=== PATIENT | male | born 1970 | race Caucasian/White ===

== ENCOUNTER 2020-03-25 14:50 | Emergency (ER) | payer BC ==
[~2020-03-25] VITALS: Ht 180.3 cm; Wt 83.9 kg
[2020-03-25] MEDS ORDERED: ZOFRAN IV STA (15:00)
[2020-03-25] MEDS ORDERED: ZOFRAN ONE (15:00)
[2020-03-25] MEDS ORDERED: NS 1000ML 1,000 ML IV ONE (15:00)
[2020-03-25] MEDS ORDERED: SUBLIMAZE IV STA ×2 (15:00→16:05)
[2020-03-25] MEDS ORDERED: SUBLIMAZE ONE ×2 (15:00→15:19)
--- NOTE | 2020-03-25 15:00 | NUR ---
ARRIVAL PT TO ROOM 8 VIA STTRETCHER PT LEFT LEG DEFORMITY AT ANKLE NO OPEN SKIN OR DISCOLORATION. AT BEDSIDE
[2020-03-25] MEDS ORDERED: VERSED ONE (15:10)
[2020-03-25] MEDS ORDERED: NS 1000ML 1,000 ML ONE (15:20)
[2020-03-25 15:23] LABS: BASOPHIL % 0.2 % (0.0-0.2); EOSINOPHIL % 0.3 % (0.0-5.0); LYMPHOCYTES # 1.52 10^3/uL1 (1.0-4.8); LYMPHOCYTES % 14.5 % (24.0-44.0); MEAN CORP HGB 30.3 pg (26-34); MONOCYTES # 0.6 10^3/uL (0.3-0.8); MONOCYTES % 5.5 % (5.0-12.0); NEUTROPHIL # 8.3 10^3/uL (1.8-7.7); NEUTROPHILS % 79.3 % (41.0-85.0); PLATELET COUNT 258 10^3/uL (150-400)
--- NOTE | 2020-03-25 15:23 | PCM.EKG ---
[facility] Test Date: 2020-03-25 Test Time: 15:18:48 Pat Name: SORAYA DE PAZ Department: Room: Gender: M Technical Support 1 Software Engineer: MARILYN : [id number] Requested By: JAG PUCKETT Order Number: [id number] Reading MD: Measurements Intervals [place] Rate: 79 P: NM: QRS: 10 QRSD: 87 T: 27 QT: 369 QTc: 424 Interpretive Statements Atrial fibrillation No previous ECG available for comparison Please click the below link to view image of tracing.
--- NOTE | 2020-03-25 15:26 | ER.PDOC ---
General Chief Complaint: Requesting Medical Care Stated Complaint: POSS BROKEN LEG Time seen by MD: 15:22 Source: patient Exam Limitations: no limitations History of Present Illness Initial Comments kicked by a cow Onset: just prior to arrival Where: work Severity: severe Context: wearing shoes, other Associated Symptoms: popping sensation Modifying Factors: pain on movement Reviewed Nursing Reviewed: Vital Signs, Abn. Noted Review of Systems All Other Systems: Reviewed and Negative Physical Exam Foot: nml inspection, non-tender Ankle: tenderness, swelling, ecchymosis, erythema, limited ROM by pain Gait: unable to bear weight Neuro: sensation nml, motor nml Vascular: no vascular compromise Tendons: tendon function nml Leg/Knee/Thigh: uninjured above ankle Skin: warm/dry Head/ENT: nml inspection, pharynx nml Neck/Back: nml inspection, non-tender Resp/CVS: no resp distress Abdomen: non-tender, no organomegaly Results/Orders Results/Orders Orders - JAG PUCKETT MD Fentanyl Citrate/Pf (Sublimaze) (03/25/20 15:00) Ondansetron Hcl/Pf (Zofran) (03/25/20 15:00) 0.9 % Sodium Chloride (Ns 1000ml) (03/25/20 15:00) Cbc With Auto Diff (03/25/20 15:02) Comprehensive Metabolic Panel (03/25/20 15:02) PT (03/25/20 15:02) Partial Thromboplastin Time. (03/25/20 15:02) Xr Chest 1v (03/25/20 15:02) Ekg-Routine (03/25/20 15:02) Midazolam Hcl/Pf (Versed) (03/25/20 15:10) Fentanyl Citrate/Pf (Sublimaze) (03/25/20 15:19) 0.9 % Sodium Chloride (Ns 1000ml) (03/25/20 15:20) Xr Ankle 3v Rt (03/25/20 15:02) Morphine Sulfate (Morphine Sulfate) (03/25/20 15:31) Midazolam Hcl (Versed) (03/25/20 15:38) Midazolam Hcl (Versed) (03/25/20 15:38) Xr Ankle 3v Lt (03/25/20 15:50) Fentanyl Citrate/Pf (Sublimaze) (03/25/20 16:05) Administered Medications Medications (Trade) Dose Ordered Sig/Marcio Route PRN Reason Start Time Stop Time Status Last Admin Dose Admin Fentanyl Citrate (Sublimaze) 100 mcg STAT STAT IV 03/25/20 15:00 03/25/20 15:03 DC 03/25/20 15:00 100 MCG Midazolam HCl (Versed) 2 mg STAT STAT IV 03/25/20 15:38 03/25/20 15:41 DC 03/25/20 15:13 2 MG Ondansetron HCl (Zofran) 4 mg STAT STAT IV 03/25/20 15:00 03/25/20 15:03 DC 03/25/20 15:00 4 MG Sodium Chloride 1,000 ml @ 0 mls/hr Q0M ONCE IV 03/25/20 15:00 03/25/20 15:03 DC 03/25/20 15:00 15 MLS/HR Laboratory Tests Test 03/25/20 15:10 03/25/20 15:12 Prothrombin Time 10.7 SEC (9.3-11.3) Prothrombin Time INR (Non-Therap) 1.1 Activated Partial Thromboplast Time 22.5 SEC (24.67-30.72) Sodium Level 139 mmol/L (132-145) Potassium Level 3.2 mmol/L (3.6-5.2) L Chloride Level 101.0 mmol/L (96-109) Carbon Dioxide Level 23.8 mmol/L (20.0-32) Anion Gap 17.4 Blood Urea Nitrogen 12 mg/dL (7-18) Creatinine 1.20 mg/dL (0.59-1.40) Estimated GFR () 78.5 (>/=60) Est GFR (CKD-EPI)(Non-Afr Filipino) 64.9 (>/=60) BUN/Creatinine Ratio 10.0 Glucose Level 106 mg/dL (70-110) Calcium Level 9.1 mg/dL (8.4-10.5) Total Bilirubin 0.3 mg/dL (0.2-1.0) Aspartate Amino Transferase (AST) 21 U/L (0-35) Alanine Aminotransferase (ALT) 46 U/L (12-78) Alkaline Phosphatase 66 U/L (50-136) Total Protein 7.7 g/dL (6.4-8.2) Albumin 4.3 g/dL (3.4-5.0) Globulin 3.4 Albumin/Globulin Ratio 1.264 White Blood Count 10.5 10^3/uL (4.5-11.0) Red Blood Count 4.72 10^6/uL (4.50-5.90) Hemoglobin 14.3 g/dL (13.9-16.3) Hematocrit 41.5 % (37.0-53.0) Mean Corpuscular Volume 87.9 fL (78-100) Mean Corpuscular Hemoglobin 30.3 pg (26-34) Mean Corpuscular Hemoglobin Concent 34.5 g/dL (33-36.5) Red Cell Distribution Width 12.0 % (11.5-14.5) Platelet Count 258 10^3/uL (150-400) Mean Platelet Volume 11.0 fL (7.8-11.0) Neutrophils (%) (Auto) 79.3 % (41.0-85.0) Lymphocytes (%) (Auto) 14.5 % (24.0-44.0) L Monocytes (%) (Auto) 5.5 % (5.0-12.0) Neutrophils # (Auto) 8.3 10^3/uL (1.8-7.7) H Lymphocytes # (Auto) 1.52 10^3/uL1 (1.0-4.8) Monocytes # (Auto) 0.6 10^3/uL (0.3-0.8) Absolute Immature Granulocyte (auto 0.02 10^3 u/L (0-2) Absolute Eosinophils (auto) 0.0 10^3/uL (0.0-0.2) Immature Granulocytes % 0.20 % (0.00-0.50) Eosinophils % 0.3 % (0.0-5.0) Basophils % 0.2 % (0.0-0.2) Basophils # 0.0 10^3/uL (0.0-0.1) Consult/PCP Time Consult/PCP Called: 15:44 Consult/PCP: DR BAO JEWELL DEPART Departure Time of Disposition: 16:22 Disposition: 01 HOME, SELF-CARE Impression: Primary Impression: Ankle fracture, bimalleolar, closed Condition: Improved Referrals: ALFRED GONZALEZ MD (PCP) PRIMARY CARE PROVIDER Duration or Time Spent with Pa: 15M JAG PUCKETT MD Mar 25, 2020 15:26
--- NOTE | 2020-03-25 15:30 | NUR ---
DR. BAO MARTINEZ MD AT BEDSIDE
[2020-03-25] MEDS ORDERED: MORPHINE SULFATE ONE (15:31)
[2020-03-25] MEDS ORDERED: VERSED IV STA ×2 (15:38)
--- NOTE | 2020-03-25 15:39 | DIREP ---
PROCEDURE:XRAY ANKLE MIN 3VWS-RT COMPARISON:None. INDICATIONS:blunt trauma rt lower ext, stepped on by cow FINDINGS: BONES:Irregularity in the region of the posterior malleolus is suspicious for a posterior malleolus fracture. There are a few tiny ossific fragments along the anterior medial aspect of the tibiotalar joint which are suggestive of additional small osseous fragments. JOINTS:Posterior dislocation of the tibiotalar joint with disruption of the talofibular articulation as well. Suspect subtle widening of the distal tibiofibular syndesmosis. SOFT TISSUES:Diffuse soft tissue swelling about the ankle. CONCLUSION: 1. Posterior dislocation of the ankle with suspected fracture of the posterior malleolus. Recommend follow-up postreduction views. Dictated by: Marco Antonio Whitlock M.D. On 03/25/2020 at 03:34 PM
--- NOTE | 2020-03-25 15:40 | DIREP ---
PROCEDURE:CHEST 1 VIEW COMPARISON:None. INDICATIONS:pinned by cow, pre op possible FINDINGS: LUNGS/PLEURA:Low lung volumes. No suspicious airspace consolidation, pleural effusion or pneumothorax is identified. VASCULATURE:Normal. Unremarkable pulmonary vasculature. CARDIAC:Normal. No cardiac silhouette abnormality or cardiomegaly. MEDIASTINUM:Normal. No visible mass or adenopathy. BONES:No acute abnormality. OTHER:Negative. CONCLUSION: 1. Low lung volumes. No acute cardiopulmonary abnormality is identified. Dictated by: Marco Antonio Whitlock M.D. On 03/25/2020 at 03:38 PM
--- NOTE | 2020-03-25 15:40 | NUR ---
DISLOCATION REDUCED LONG LEG POST MOLD APPLIED BY DR. GORE XRAY AT BEDSIDE.
[2020-03-25 15:50] LABS: CALCIUM 9.1 mg/dL (8.4-10.5); CARBON DIOXIDE 23.8 mmol/L (20.0-32)
[2020-03-25 16:08] VITALS: BP 191/117
--- NOTE | 2020-03-25 16:16 | DIREP ---
PROCEDURE:XRAY ANKLE MIN 3VWS-LT COMPARISON:[facility], , XRAY ANKLE MIN 3VWS-RT, 03/25/2020, 03:07 PM. INDICATIONS:post reduction RT ankle FINDINGS: BONES:Oblique fracture of the lateral malleolus with 3 mm distraction. Displaced avulsion fracture involving the lateral cortex of the distal tibial meta epiphysis. 4 mm distracted fracture of the posterior malleolus. JOINTS:Interval reduction of the previously seen tibiotalar dislocation. SOFT TISSUES:Normal. OTHER:No additional findings. CONCLUSION: 1. Medial malleoli or and posterior malleoli distracted fractures with avulsion fracture involving the lateral cortex of the distal tibial meta diaphysis. 2. Interval reduction of the previously seen posterior tibiotalar dislocation. Dictated by: Nitin Pickard MD on 03/25/2020 at 04:10 PM
--- NOTE | 2020-03-25 17:40 | CNH ---
DATE OF CONSULTATION: 03/25/2020 CHIEF COMPLAINT: Painful left ankle. 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 He was seen by Dr. Cruz whose exam and x-rays showed that he had a fracture dislocation about the left ankle. I was consulted for further evaluation and treatment. PHYSICAL EXAMINATION: Shows that he had obvious deformity about the left ankle with posterior dislocation and external rotation. His dorsalis pedis pulse was 1+. He had normal sensation about the foot dorsally and plantarly. He had no open wounds. There was no fracture, blisters or excessive bruising. IMAGING STUDIES: The x-rays showed that he had a posterior tibiotalar dislocation with what appeared to be a fracture of his lateral malleolus. ASSESSMENT: Closed fracture dislocation, left ankle. The patient was given some IV sedation. The fracture dislocation was reduced with traction and manipulation. He was placed in a well-padded U splint. The post-reduction x-rays showed satisfactory alignment of the fracture and satisfactory reduction of the ankle joint. He did not appear to have a talus fracture. His medial malleolus appeared to be intact clockwise. After the reduction, the patient had a 2+ dorsalis pedis pulse with good sensation to the foot. PLAN: The patient will be nonweightbearing. We gave him a prescription for tramadol and cast precautions. He will keep it elevated as much as possible and see me in my office in 2 days. Matteo Curry MD DR: DESMOND/bob JOB# [id number]
[2020-03-30] MEDS ORDERED: IBUP-1131 PO (09:14)
[2020-03-30] MEDS ORDERED: ACET500T73 PO (09:14)
== END 2020-03-25 16:42 | disposition home or self-care (01) ==
LOC: ER 14:50
DX: S82.841A Displaced bimalleolar fracture of right lower leg, initial encounter for closed fracture (principal); W55.22XA Struck by cow, initial encounter; Y93.89 Activity, other specified; Y92.89 Other specified places as the place of occurrence of the external cause; Y99.8 Other external cause status
CPT/HCPCS: 27810; 36415; 71045; 73610 ×2; 80053; 85025; 85610; 85730; 93005; 96361; 96374; 99285; J2250; J2270; J2405; J3010 ×2; J7030; 27752

== ENCOUNTER → 2020-03-28 | Outpatient (CLI) | payer BC ==
[~2020-03-28] MED LIST: ACET1TAB34 PO; ACET500T73 PO; IBUP-1131 PO
--- NOTE | 2020-03-28 16:15 | DIREP ---
PROCEDURE:CT LOWER EXTREMITY-LT W/O COMPARISON:None. INDICATIONS:FRACTURE OF LEFT LOWER LEG TECHNIQUE:Axial sections through the left ankle were performed with sagittal and coronal reconstructions from source images. No contrast was administered. FINDINGS: BONES:There is trimalleolar fracture with comminution. Oblique fracture line is present in the distal fibular shaft from proximal posterior to distal anterior best demonstrated on sagittal series 21210, image 26. Small avulsion fragments are present in the distal anterior tibia at the attachment site of the anterior inferior tibiofibular ligament series 27293 images 19-21. There are 2 small 2 mm fragments interposed between the lateral tibial plafond and the talar dome coronal series [id number], image 23. Fracture is present through the posterior malleolus best demonstrated on sagittal series [id number] images 11-19 and axial series 4 images 34-40. Third major fracture line is present through the medial malleolus posteriorly series 4 images 31-41. There are separate bony fragments along the superior portion of the fracture well demonstrated on 3D reformatted series 201 image 7 as well as coronal series 22565 images 21-25. This fracture line extends to the distal articular surface of the tibia but there is no step-off. JOINTS:Normal SOFT TISSUES:Normal OTHER:Negative. CONCLUSION: Trimalleolar fracture with comminution. Additional avulsion fracture is present off of the distal anterior aspect of the lateral tibia at the attachment site of the anterior inferior tibiofibular ligament. Two tiny bone fragments are seen between the tibial plafond and the talar dome. Dictated by: Edvin Sol M.D. on 03/28/2020 at 03:59 PM
== END | disposition home or self-care (01) ==
LOC: RAD 13:55
PROVIDERS: ATTEND Orthopaedic Surgery
DX: S82.892D Other fracture of left lower leg, subsequent encounter for closed fracture with routine healing (principal); X58.XXXD Exposure to other specified factors, subsequent encounter
CPT/HCPCS: 73700

== ENCOUNTER 2020-03-31 09:00 | Day surgery (SDC) | payer BC ==
[2020-03-29 12:29] LABS: BASOPHIL % 0.5 % (0.0-0.2); EOSINOPHIL # 0.1 10^3/uL (0.0-0.2); LYMPHOCYTES # 1.26 10^3/uL1 (1.0-4.8); LYMPHOCYTES % 20.3 % (24.0-44.0); MEAN CORP HGB 30.7 pg (26-34); MONOCYTES # 0.4 10^3/uL (0.3-0.8); MONOCYTES % 6.8 % (5.0-12.0); NEUTROPHIL # 4.4 10^3/uL (1.8-7.7); NEUTROPHILS % 71.2 % (41.0-85.0); PLATELET COUNT 219 10^3/uL (150-400)
[2020-03-29 12:52] LABS: CALCIUM 8.9 mg/dL (8.4-10.5); CARBON DIOXIDE 24.8 mmol/L (20.0-32)
[~2020-03-31] VITALS: Ht 177.8 cm; Wt 83.9 kg
[2020-03-31] VITALS (12 sets, daily range): BP systolic 96–167; BP diastolic 49–87
[~2020-03-31 09:00] MED LIST changes: -ACET1TAB34 PO; +ANCEF ONE; +LACTATED RINGERS 1,000 ML IV SCH; +LACTATED RINGERS 1,000 ML ONE; +NS 100ML 100 ML IV ONE
[2020-03-31] MEDS ORDERED: NS 1000ML 1,000 ML ONE (10:39)
[2020-03-31] MEDS ORDERED: PRECEDEX IV ONE (10:40)
[2020-03-31] MEDS ORDERED: TORADOL ONE (10:40)
[2020-03-31] MEDS ORDERED: NS 100ML 100 ML IV ONE (10:40)
[2020-03-31] MEDS ORDERED: LIDOCAINE 2% VIAL ONE (10:40)
[2020-03-31] MEDS ORDERED: KETAMINE HCL-Non-Preferred ONE (10:41)
[2020-03-31] MEDS ORDERED: MARCAINE SPINAL AMPUL IJ ONE (10:41)
[2020-03-31] MEDS ORDERED: VERSED ONE (10:41)
[2020-03-31] MEDS ORDERED: ZOFRAN ONE (10:41)
[2020-03-31] MEDS ORDERED: SUBLIMAZE ONE (10:41)
[2020-03-31] MEDS ORDERED: DECADRON ONE (10:42)
[2020-03-31] MEDS ORDERED: DIPRIVAN IV ONE (10:42)
[2020-03-31] MEDS ORDERED: OFIRMEV 100 ML IV ONE (10:43)
[2020-03-31] MEDS ORDERED: SODIUM CHLORIDE IRR BOTTLE IR ONE (11:31)
[2020-03-31] MEDS ORDERED: ACET1TAB34 PO (12:53)
--- NOTE | 2020-03-31 13:02 | OPH ---
DATE OF SURGERY: 03/31/2020 PREOPERATIVE DIAGNOSIS: Trimalleolar fracture of the left ankle. POSTOPERATIVE DIAGNOSIS: Trimalleolar fracture of the left ankle. OPERATIVE PROCEDURE: Open reduction and internal fixation of left ankle fracture. SURGEON: Matteo Curry MD ANESTHESIA: Spinal. TOURNIQUET TIME: 42 minutes at 300 mmHg. DRAINS: None. BLOOD LOSS: 10 mL. 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 The patient's ankle was initially reduced in the Emergency Room by myself under IV sedation. He had quite a bit of swelling at that point and therefore was placed in a wall-padded sugar tong splint and then taken back to the operating room today for open reduction and internal fixation. The CT scan showed a displaced lateral malleolus fracture with a nondisplaced comminuted medial malleolar fracture and a small posterior malleolar fracture. The patient was taken to the operating room for the above procedure. DESCRIPTION OF PROCEDURE: The patient was placed on the operating table in the supine position. A spinal anesthetic had been given by the Anesthesia Department. A well-padded tourniquet was placed around the left thigh. Left lower extremity was sterilely prepped and draped. The patient had the incision made about the lateral malleolus. The incision was taken through the skin and subcutaneous tissue down to the periosteum. The fracture was then exposed and reduced with an elevator in a towel clip reduction clamp. We placed a 6-hole third tubular plate about the lateral malleolus and secured it with three 3.5 cortical screws proximally and 2 cancellous screws distally. The third screw hole was left open because it would have gone through the fracture site. AP and lateral C-arm view showed satisfactory reduction of the fracture as well as the mortise. The hardware was in good position. The medial malleolar fracture was basically nondisplaced and the posterior malleolar fracture involved maybe 10% of the joint, so we elected not to fix these fractures. The patient was then placed in a compressive dressing consisting of Adaptic, 4 x 4s, ABD pad, cast padding and a U splint. Tourniquet was released. He was sent to recovery in stable condition. Matteo Curry MD DR: DESMOND/bob JOB# [id number]
--- NOTE | 2020-03-31 15:19 | DIREP ---
PROCEDURE:XRAY ANKLE MIN 3VWS-LT COMPARISON:[facility], CT, CT LOWER EXTREMITY-LT W/O, 03/28/2020, 02:58 PM. [facility], CR, XRAY ANKLE MIN 3VWS-LT, 03/25/2020, 03:45 PM. INDICATIONS:POST OP ORIF LEFT ANKLE. FINDINGS: BONES:The patient has had internal fixation of fracture of the distal fibula with lateral contoured plate and screws. There is good alignment at the fracture site and at the left ankle. A 2.3 cm linear ossification is present medial to the medial malleolus consistent with avulsed fragment. Posterior malleolar fracture is not as well demonstrated as on CT scan. JOINTS:Normal. SOFT TISSUES:Normal. OTHER:No additional findings. CONCLUSION:The patient has had internal fixation for fracture of the distal fibula with good alignment at the fracture site. Avulsed fragment is seen off of the medial malleolus. Dictated by: Edvin Sol M.D. on 03/31/2020 at 01:12 PM
== END 2020-03-31 15:07 | disposition home or self-care (01) ==
LOC: SURG 09:00
PROVIDERS: ATTEND Orthopaedic Surgery
DX: S82.852A Displaced trimalleolar fracture of left lower leg, initial encounter for closed fracture (principal); E66.3 Overweight; Z68.26 Body mass index [BMI] 26.0-26.9, adult; X58.XXXA Exposure to other specified factors, initial encounter; Y93.89 Activity, other specified; Y92.89 Other specified places as the place of occurrence of the external cause; Y99.0 Civilian activity done for income or pay
CPT/HCPCS: 27822; 36415; 64447; 64450; 73610; 76942; 80053; 85025; A4217; A4649; C1713 ×4; J0131; J0690; J1100; J1885; J2001; J2250; J2405; J3010; J3490 ×2; J7030; J7050 ×2; J7120; 76000

== ENCOUNTER → 2021-08-28 | Outpatient (CLI) | payer BC ==
[~2021-08-28] MED LIST changes: +ACET1TAB57 PO; -ANCEF ONE; -LACTATED RINGERS 1,000 ML IV SCH; -LACTATED RINGERS 1,000 ML ONE; -NS 100ML 100 ML IV ONE
--- NOTE | 2021-08-28 16:35 | DIREP ---
PROCEDURE:C-Spine 3 views TECHNIQUE:AP, lateral, and dens views of the cervical spine are provided. COMPARISON:None. INDICATIONS:CERVICALGIA FINDINGS: ALIGNMENT:Normal. VERTEBRAE:Normal. DISK SPACES:Normal. CERVICAL RIBS:None. OTHER:Normal. CONCLUSION:Normal cervical spine. Dictated by: Edvin Sol M.D. on 08/28/2021 at 04:31 PM
--- NOTE | 2021-08-28 16:36 | DIREP ---
PROCEDURE:T-SPINE 3 VIEWS TECHNIQUE:AP & lateral views of the thoracic spine and a swimmer's view of the cervicothoracic junction are provided. COMPARISON:None. INDICATIONS:THORACIC SPINE PAIN, DDD, MUSCLE SPAMS FINDINGS: ALIGNMENT:Normal. VERTEBRAE:Normal. DISK SPACES:Normal. OTHER:Normal. CONCLUSION:Normal thoracic spine. Dictated by: Edvin Sol M.D. on 08/28/2021 at 04:34 PM
--- NOTE | 2021-08-28 16:40 | DIREP ---
PROCEDURE:XRAY SPINE LUMBAR 2-3 VWS COMPARISON:None. INDICATIONS:MUSCLE SPASMS, DDD FINDINGS: ALIGNMENT:Normal. VERTEBRAE:T12 is a transitional vertebral body. Minimal anterior osteophyte formation L4 and L5. DISK SPACES:Normal. SACROILIAC JOINTS:Normal. OTHER:Normal. CONCLUSION:No acute abnormalities. Dictated by: Edvin Sol M.D. on 08/28/2021 at 04:37 PM
== END | disposition home or self-care (01) ==
LOC: RAD 11:27
PROVIDERS: ATTEND Nurse Practitioner Family
DX: M54.9 Dorsalgia, unspecified (principal); M62.838 Other muscle spasm; M54.2 Cervicalgia
CPT/HCPCS: 72040; 72072; 72100

== ENCOUNTER → 2021-12-20 | Outpatient (CLI) | payer BC | END | disposition home or self-care (01) | LOC: NPLAB 11:49 | PROVIDERS: ATTEND Nurse Practitioner Family | DX: J06.9 Acute upper respiratory infection, unspecified (principal); R50.9 Fever, unspecified; R05.1 Acute cough | CPT/HCPCS: 87804 ==

== ENCOUNTER → 2023-02-26 | Outpatient (CLI) | payer BC | END | disposition home or self-care (01) | LOC: NPLAB 19:53 | PROVIDERS: ATTEND Nurse Practitioner Family | DX: K21.9 Gastro-esophageal reflux disease without esophagitis (principal); B96.81 Helicobacter pylori [H. pylori] as the cause of diseases classified elsewhere | CPT/HCPCS: 87338 ==

== ENCOUNTER → 2023-08-14 | Outpatient (CLI) | payer BC | END | disposition home or self-care (01) | LOC: RAD 15:26 | PROVIDERS: ATTEND Nurse Practitioner Family | DX: K45.8 Other specified abdominal hernia without obstruction or gangrene (principal); R10.811 Right upper quadrant abdominal tenderness; R10.11 Right upper quadrant pain; R14.0 Abdominal distension (gaseous) | CPT/HCPCS: 74018 ==

== ENCOUNTER → 2023-08-20 | Outpatient (CLI) | payer BC | END | disposition home or self-care (01) | LOC: RAD 07:15 | PROVIDERS: ATTEND Nurse Practitioner Family | DX: K76.0 Fatty (change of) liver, not elsewhere classified (principal); R10.811 Right upper quadrant abdominal tenderness; R10.11 Right upper quadrant pain; K45.8 Other specified abdominal hernia without obstruction or gangrene | CPT/HCPCS: 76705 ==

== ENCOUNTER → 2023-08-20 | Outpatient (CLI) | payer BC ==
[2023-08-20 08:34] LABS: BASOPHIL # 0.1 10^3/uL (0.0-0.1); BASOPHIL % 0.7 % (0.0-0.2); EOSINOPHIL # 0.1 10^3/uL (0.0-0.2); EOSINOPHIL % 1.4 % (0.0-5.0); HEMATOCRIT(ML) 44.9 % (37.0-53.0); LYMPHOCYTES # 1.31 10^3/uL1 (1.0-4.8); LYMPHOCYTES % 18.1 % (24.0-44.0); MEAN CORP HGB 29.6 pg (26-34); MEAN CORP HGB CONCENTRATION 33.2 g/dL (33-36.5); MEAN CORP VOLUME 89.1 fL (78-100); MONOCYTES # 0.4 10^3/uL (0.3-0.8); NEUTROPHIL # 5.3 10^3/uL (1.8-7.7); NEUTROPHILS % 73.2 % (41.0-85.0); PLATELET COUNT 245 10^3/uL (150-400); RED BLOOD CELL 5.04 10^6/uL (4.50-5.90); RED CELL DISTRIBUTION WIDTH 12.7 % (11.5-14.5); WHITE BLOOD CELL 7.2 10^3/uL (4.5-11.0)
[2023-08-20 08:35] LABS: +ADD MANUAL DIFF(NO CHRG) NO; HEMOGLOBIN 14.9 g/dL (13.9-16.3)
[2023-08-20 08:56] LABS: ALBUMIN(ML) 3.7 g/dL (3.4-5.0); ANION GAP 16.8; BUN/CREATININE RATIO 11.5 (10.0-20.0); C-REACTIVE PROTEIN 0.19 mg/dL (0.00-5.00); CALCIUM 9.2 mg/dL (8.4-10.5); CARBON DIOXIDE 20.8 mmol/L (20.0-32); CREATININE SERUM 1.13 mg/dL (0.59-1.40); EST GFR, NON-AA 68.4 (>/=60); LDL/HDL RATIO 3.7; POTASSIUM 4.6 mmol/L (3.6-5.2)
[2023-08-22 08:15] LABS: HEP A AB, IgM Negative (Negative)
== END | disposition home or self-care (01) ==
LOC: LAB 07:19
PROVIDERS: ATTEND Nurse Practitioner Family
DX: Z00.00 Encounter for general adult medical examination without abnormal findings (principal); R14.0 Abdominal distension (gaseous); I10 Essential (primary) hypertension; K21.9 Gastro-esophageal reflux disease without esophagitis; R53.83 Other fatigue; R10.811 Right upper quadrant abdominal tenderness; R10.11 Right upper quadrant pain; K45.8 Other specified abdominal hernia without obstruction or gangrene
CPT/HCPCS: 36415; 80050; 80061; 80074; 82150; 84153; 84402; 84403; 84439; 86140; 86225

== ENCOUNTER 2023-09-17 16:36 | Observation (INO) | payer BC ==
[~2023-09-17] VITALS: Ht 175.3 cm; Wt 97.3 kg
[2023-09-17] VITALS (7 sets, daily range): BP systolic 134–153; BP diastolic 84–94; PULSE 83–114; RESP 18–20; TEMP 98.3–99.5; O2SAT 93–97
[2023-09-17] MEDS ORDERED: ZOFRAN ONE (17:14)
[2023-09-17] MEDS: NS 1000ML 1,000 ML IV ONE (17:17)
[2023-09-17] MEDS: ZOFRAN IV STA (17:17)
[2023-09-17 17:20] LABS: BILIRUBIN,URINE NEGATIVE (NEGATIVE); LEUKOCYTE ESTERASE ,URINE NEGATIVE (NEGATIVE); NITRATE,URINE NEGATIVE (NEGATIVE); PH,URINE 5.5 (4.5-8.0); UROBILINOGEN,URINE 0.2 E.U./dL (0.2)
[2023-09-17 17:27] LABS: BASOPHIL # 0.1 10^3/uL (0.0-0.1); BASOPHIL % 0.4 % (0.0-0.2); EOSINOPHIL # 0.1 10^3/uL (0.0-0.2); EOSINOPHIL % 0.8 % (0.0-5.0); HEMATOCRIT(ML) 44.5 % (37.0-53.0); HEMOGLOBIN 14.7 g/dL (13.9-16.3); LYMPHOCYTES # 1.57 10^3/uL1 (1.0-4.8); LYMPHOCYTES % 12.3 % (24.0-44.0); MEAN CORP HGB 29.6 pg (26-34); MEAN CORP VOLUME 89.5 fL (78-100); MONOCYTES % 7.8 % (5.0-12.0); NEUTROPHILS % 78.4 % (41.0-85.0); PLATELET COUNT 232 10^3/uL (150-400); RED BLOOD CELL 4.97 10^6/uL (4.50-5.90); RED CELL DISTRIBUTION WIDTH 12.7 % (11.5-14.5); WHITE BLOOD CELL 12.7 10^3/uL (4.5-11.0)
[2023-09-17 17:28] LABS: APPEARANCE,URINE CLEAR; UA COLOR YELLOW
[2023-09-17 17:30] LABS: ANION GAP 13.9; BUN/CREATININE RATIO 11.3 (10.0-20.0); C-REACTIVE PROTEIN 7.29 mg/dL (0.00-5.00); CALCIUM 9.8 mg/dL (8.4-10.5); CARBON DIOXIDE 24.8 mmol/L (20.0-32); CREATININE SERUM 1.15 mg/dL (0.59-1.40); POTASSIUM 3.7 mmol/L (3.6-5.2)
[2023-09-17 17:32] LABS: +ADD MANUAL DIFF(NO CHRG) NO
[2023-09-17] MEDS ORDERED: MORPHINE SULFATE IV PRN (20:30)
[2023-09-17] MEDS ORDERED: ZOFRAN IV PRN (20:30)
[2023-09-17] MEDS ORDERED: NS 100ML 100 ML IV ONE (20:34)
[2023-09-17] MEDS: ZOSYN 3.375 GM 3.375 GM in NS 100ML 100 ML IV SCH (20:38)
[2023-09-17] MEDS: LOVENOX SQ SCH (20:50)
[2023-09-17] MEDS: LACTATED RINGERS 1,000 ML IV SCH (20:50)
[2023-09-17] MEDS: OFIRMEV 1000 MG/100 ML IV SCH (21:14)
[2023-09-17] MEDS: PROTONIX PO SCH (22:49)
[2023-09-18] MEDS ORDERED: CITA20TA9 PO (01:47)
[2023-09-18] MEDS ORDERED: LISI20TA21 PO (01:47)
[2023-09-18] MEDS ORDERED: NS 100ML 100 ML IV ONE ×5 (02:00→20:33)
[2023-09-18] MEDS: ZOSYN 3.375 GM 3.375 GM in NS 100ML 100 ML IV SCH (02:00)
[2023-09-18] MEDS ORDERED: NS 250ML 250 ML ONE (02:01)
[2023-09-18 04:00] VITALS: BP 106/72; PULSE 78; RESP 18; TEMP 97.5; O2SAT 94
[2023-09-18 06:08] LABS: BASOPHIL # 0.1 10^3/uL (0.0-0.1); BASOPHIL % 0.8 % (0.0-0.2); EOSINOPHIL # 0.2 10^3/uL (0.0-0.2); EOSINOPHIL % 1.9 % (0.0-5.0); HEMATOCRIT(ML) 40.6 % (37.0-53.0); HEMOGLOBIN 13.4 g/dL (13.9-16.3); LYMPHOCYTES # 1.67 10^3/uL1 (1.0-4.8); MEAN CORP HGB 29.6 pg (26-34); MEAN CORP VOLUME 89.8 fL (78-100); MONOCYTES # 0.8 10^3/uL (0.3-0.8); MONOCYTES % 9.4 % (5.0-12.0); NEUTROPHIL # 5.6 10^3/uL (1.8-7.7); NEUTROPHILS % 67.5 % (41.0-85.0); PLATELET COUNT 195 10^3/uL (150-400); RED BLOOD CELL 4.52 10^6/uL (4.50-5.90); RED CELL DISTRIBUTION WIDTH 12.8 % (11.5-14.5); WHITE BLOOD CELL 8.3 10^3/uL (4.5-11.0)
[2023-09-18 06:11] LABS: PROTHROMBIN PROTIME 10.3 SEC (9.7-11.6)
[2023-09-18 06:20] LABS: ALBUMIN(ML) 3.3 g/dL (3.4-5.0); ALBUMIN/GLOBULIN RATIO 0.942; BUN/CREATININE RATIO 9.34 (10.0-20.0); CALCIUM 8.9 mg/dL (8.4-10.5); CARBON DIOXIDE 24.9 mmol/L (20.0-32); CREATININE SERUM 1.07 mg/dL (0.59-1.40); EST GFR, NON-AA 72.9 (>/=60); POTASSIUM 3.9 mmol/L (3.6-5.2)
[2023-09-18 06:22] LABS: +ADD MANUAL DIFF(NO CHRG) NO
[2023-09-18 08:00] VITALS: BP 102/70; PULSE 72; RESP 19; TEMP 97.9; O2SAT 92
[2023-09-18] MEDS: CeleXA PO SCH (09:00)
[2023-09-18 12:26] VITALS: BP 113/68; PULSE 59; RESP 22; TEMP 97; O2SAT 97
[2023-09-18] MEDS ORDERED: FLAGYL 500MG/ 100 ML NS 100 ML IV ONE (13:53)
[2023-09-18 16:08] VITALS: BP 141/83; PULSE 62; RESP 17; TEMP 97.8; O2SAT 96
[2023-09-18 20:29] VITALS: BP 127/88; PULSE 60; RESP 16; TEMP 97.8; O2SAT 94
[2023-09-19 01:29] VITALS: BP 118/80; PULSE 70; RESP 16; TEMP 97.5; O2SAT 92
[2023-09-19] MEDS ORDERED: NS 100ML 100 ML IV ONE ×4 (02:15→20:09)
[2023-09-19 04:09] VITALS: BP 112/72; PULSE 54; RESP 16; TEMP 97.3; O2SAT 92
[2023-09-19 05:45] LABS: BASOPHIL # 0.1 10^3/uL (0.0-0.1); EOSINOPHIL # 0.2 10^3/uL (0.0-0.2); EOSINOPHIL % 3.6 % (0.0-5.0); HEMATOCRIT(ML) 39.6 % (37.0-53.0); LYMPHOCYTES % 24.1 % (24.0-44.0); MEAN CORP HGB 29.7 pg (26-34); MEAN CORP HGB CONCENTRATION 32.8 g/dL (33-36.5); MEAN CORP VOLUME 90.6 fL (78-100); MONOCYTES # 0.4 10^3/uL (0.3-0.8); MONOCYTES % 8.8 % (5.0-12.0); NEUTROPHIL # 3.1 10^3/uL (1.8-7.7); NEUTROPHILS % 62.3 % (41.0-85.0); PLATELET COUNT 190 10^3/uL (150-400); RED BLOOD CELL 4.37 10^6/uL (4.50-5.90); RED CELL DISTRIBUTION WIDTH 12.3 % (11.5-14.5)
[2023-09-19 06:10] LABS: ALBUMIN(ML) 2.9 g/dL (3.4-5.0); ALBUMIN/GLOBULIN RATIO 0.828; ANION GAP 11.5; BUN/CREATININE RATIO 7.92 (10.0-20.0); CALCIUM 8.5 mg/dL (8.4-10.5); CARBON DIOXIDE 25.4 mmol/L (20.0-32); CREATININE SERUM 1.01 mg/dL (0.59-1.40); EST GFR, NON-AA 77.9 (>/=60); POTASSIUM 3.9 mmol/L (3.6-5.2)
[2023-09-19 06:31] LABS: +ADD MANUAL DIFF(NO CHRG) NO
[2023-09-19 08:00] VITALS: BP 123/81; PULSE 68; RESP 18; TEMP 97.1; O2SAT 96
[2023-09-19] MEDS ORDERED: PANT40TA6 PO (11:25)
[2023-09-19] MEDS ORDERED: AMOX1TAB61 PO (11:25)
[2023-09-19 13:32] VITALS: BP 134/85; PULSE 69; RESP 18; TEMP 97.1; O2SAT 95
[2023-09-19] MEDS ORDERED: NS 250ML 250 ML ONE (14:21)
[2023-09-19 16:59] VITALS: BP 112/71; PULSE 62; RESP 18; TEMP 97.1; O2SAT 94
[2023-09-19 22:35] VITALS: BP 128/82; PULSE 72; RESP 16; TEMP 98.4; O2SAT 93
[2023-09-20] MEDS ORDERED: NS 100ML 100 ML IV ONE ×2 (01:26→09:14)
[2023-09-20 01:51] VITALS: BP 112/69; PULSE 64; RESP 16; TEMP 98; O2SAT 93
[2023-09-20 05:16] VITALS: BP 111/60; PULSE 59; RESP 17; TEMP 97.3; O2SAT 97
[2023-09-20 08:00] VITALS: BP 129/91; PULSE 62; RESP 16; TEMP 96.9; O2SAT 98
[2023-09-20] MEDS ORDERED: PANT40TA6 PO (10:21)
[2023-09-20 13:12] VITALS: BP 129/91; PULSE 62; RESP 16; TEMP 96.9; O2SAT 98
== END 2023-09-20 13:00 | disposition home or self-care (01) ==
LOC: ER 16:36 → EDBEDREQSVC 20:48 → OBS 21:18
PROVIDERS: ADMIT Internal Medicine; ATTEND Internal Medicine
DX: K57.32 Diverticulitis of large intestine without perforation or abscess without bleeding (principal); K81.1 Chronic cholecystitis; I10 Essential (primary) hypertension; E66.9 Obesity, unspecified; K76.0 Fatty (change of) liver, not elsewhere classified; Z79.899 Other long term (current) drug therapy; Z87.891 Personal history of nicotine dependence; Z68.31 Body mass index [BMI] 31.0-31.9, adult
CPT/HCPCS: 96372 ×3; 99291; 96365; 96361; 96375 ×2; 87086; 74177; 76705; 80053 ×3; 85025 ×3; 36415 ×3; 83605; 81001; 83690; 85651; 86140; 83735; 96366 ×4; 96376 ×3; 85610; 85730; G0378 ×63; J7030; J7120 ×7; J0131 ×8; J1650 ×3; J2405; J2543 ×4; Q9965; J7050 ×2; J3490

== ENCOUNTER → 2024-04-05 | Outpatient (CLI) | payer BC ==
[~2024-04-05] MED LIST changes: +AMOX1TAB61 PO; +CARI350T PO; +CELE100C PO; +CITA20TA9 PO; +LISI20TA21 PO; +METH-622 PO; +PANT40TA6 PO
== END | disposition home or self-care (01) ==
LOC: RAD 08:56
PROVIDERS: ATTEND Nurse Practitioner Family
DX: K76.0 Fatty (change of) liver, not elsewhere classified (principal); R10.11 Right upper quadrant pain
CPT/HCPCS: 76705

== ENCOUNTER → 2024-04-20 | Outpatient (CLI) | payer BC | END | disposition home or self-care (01) | LOC: RAD 08:09 | PROVIDERS: ATTEND Nurse Practitioner Family | DX: K76.0 Fatty (change of) liver, not elsewhere classified (principal); G89.18 Other acute postprocedural pain; K57.92 Diverticulitis of intestine, part unspecified, without perforation or abscess without bleeding; K40.90 Unilateral inguinal hernia, without obstruction or gangrene, not specified as recurrent; K42.9 Umbilical hernia without obstruction or gangrene; M47.816 Spondylosis without myelopathy or radiculopathy, lumbar region; R10.819 Abdominal tenderness, unspecified site | CPT/HCPCS: 74177; Q9965 ==

== ENCOUNTER 2024-05-12 08:30 | Day surgery (SDC) | payer BC ==
[2024-05-10 10:36] VITALS: BP 134/78; PULSE 67; RESP 18; TEMP 98.9; O2SAT 97
[2024-05-10 12:10] LABS: BASOPHIL # 0.1 10^3/uL (0.0-0.1); BASOPHIL % 1.2 % (0.2-1.2); EOSINOPHIL # 0.1 10^3/uL (0.0-0.2); EOSINOPHIL % 2.2 % (0.0-5.0); HEMATOCRIT(ML) 43.8 % (37.0-53.0); HEMOGLOBIN 14.2 g/dL (13.9-16.3); LYMPHOCYTES # 1.11 10^3/uL1 (1.0-4.8); LYMPHOCYTES % 21.9 % (24.0-44.0); MEAN CORP HGB 29.8 pg (26-34); MEAN CORP HGB CONCENTRATION 32.4 g/dL (33-36.5); MONOCYTES # 0.4 10^3/uL (0.3-0.8); MONOCYTES % 8.5 % (5.0-12.0); NEUTROPHIL # 3.3 10^3/uL (1.8-7.7); NEUTROPHILS % 65.8 % (41.0-85.0); PLATELET COUNT 220 10^3/uL (150-400); RED BLOOD CELL 4.76 10^6/uL (4.50-5.90); WHITE BLOOD CELL 5.1 10^3/uL (4.5-11.0)
[2024-05-10 12:13] LABS: +ADD MANUAL DIFF(NO CHRG) NO
[2024-05-10 12:27] LABS: PROTHROMBIN PROTIME 9.9 SEC (9.3-11.6)
[2024-05-10 12:38] LABS: ALBUMIN(ML) 3.8 g/dL (3.4-5.0); ALBUMIN/GLOBULIN RATIO 1.117; ANION GAP 12.9; BUN/CREATININE RATIO 9.8 (10.0-20.0); CALCIUM 8.7 mg/dL (8.4-10.5); CARBON DIOXIDE 26.6 mmol/L (20.0-32); CREATININE SERUM 1.02 mg/dL (0.59-1.40); EST GFR, NON-AA 76.7 (>/=60); POTASSIUM 4.5 mmol/L (3.6-5.2)
[2024-05-12] VITALS (27 sets, daily range): BP systolic 80–150; BP diastolic 47–98; PULSE 79–113; RESP 16–18; TEMP 97.7–100.8; O2SAT 91–97
[~2024-05-12] VITALS: Ht 180.3 cm; Wt 90.7 kg
[~2024-05-12 08:30] MED LIST changes: +CITA40TA12 PO; +ISOTON GENTAMICIN 80 MG/100 ML 100 ML IV ONE; +LACTATED RINGERS 1,000 ML ONE; +LOVA20TA2 PO; +LOVENOX SQ ONE; +MARCAINE 0.25%-EPI 1:200,000 ONE; +MEFOXIN ONE; +SENSORCAINE-MPF 0.25% VIAL ONE; +SODIUM CHLORIDE IRR BOTTLE IR ONE; +TEST200V3 IM; +WATER ONE
[2024-05-12] MEDS ORDERED: EXPAREL 266 MG/20 ML VIAL IJ ONE (08:31)
[2024-05-12] MEDS: LACTATED RINGERS 1,000 ML IV SCH (08:45)
[2024-05-12] MEDS: LOVENOX SQ ONE (08:45)
[2024-05-12] MEDS ORDERED: TORADOL ONE (10:04)
[2024-05-12] MEDS ORDERED: DECADRON ONE (10:04)
[2024-05-12] MEDS ORDERED: ZOFRAN ONE (10:04)
[2024-05-12] MEDS ORDERED: NS 1000ML 1,000 ML ONE ×2 (10:04→12:56)
[2024-05-12] MEDS ORDERED: BRIDION IV ONE (10:04)
[2024-05-12] MEDS ORDERED: ZEMURON IV ONE (10:05)
[2024-05-12] MEDS ORDERED: OFIRMEV 1000 MG/100 ML 100 ML IV ONE ×2 (10:05→16:05)
[2024-05-12] MEDS ORDERED: SUBLIMAZE 100MCG/2ML ONE (10:05)
[2024-05-12] MEDS ORDERED: DIPRIVAN IV ONE (10:05)
[2024-05-12] MEDS ORDERED: XYLOCAINE ONE (10:10)
[2024-05-12] MEDS: MEFOXIN 2 GM in NS 100ML 100 ML IV ONE (10:23)
[2024-05-12] MEDS ORDERED: SODIUM CHLORIDE IRR BOTTLE IR ONE (11:15)
[2024-05-12] MEDS ORDERED: MEFOXIN ONE (12:11)
[2024-05-12] MEDS ORDERED: MEFOXIN 2 GM in NS 100ML 100 ML IV ONE (12:30)
[2024-05-12] MEDS ORDERED: REGLAN ONE (13:57)
[2024-05-12] MEDS: REGLAN IV ONE (14:00)
[2024-05-12] MEDS ORDERED: DILAUDID ONE (14:08)
[2024-05-12] MEDS: DILAUDID IV ONE (14:10)
[2024-05-12] MEDS: OFIRMEV 1000 MG/100 ML 100 ML IV SCH (16:09)
== END 2024-05-12 16:25 | disposition home or self-care (01) ==
LOC: SDC 08:30
PROVIDERS: ATTEND Surgery
DX: K43.0 Incisional hernia with obstruction, without gangrene (principal); I10 Essential (primary) hypertension; F41.9 Anxiety disorder, unspecified; K21.9 Gastro-esophageal reflux disease without esophagitis; Z98.890 Other specified postprocedural states; Z79.01 Long term (current) use of anticoagulants; Z79.899 Other long term (current) drug therapy
CPT/HCPCS: 80053; 85025; 36415; 85610; 85730; 93005; 49594; J1885; J0666; J3490 ×4; J1580; J7030 ×2; J7120; A6222; A4649 ×2; J0694 ×3; J1171; J0131 ×3; J1100; J2704; J2003; J1650; J2405; J3010; J2765; C1781; A4217 ×3; C9290

== ENCOUNTER → 2024-08-26 | Outpatient (CLI) | payer BC ==
[~2024-08-26] MED LIST changes: -ISOTON GENTAMICIN 80 MG/100 ML 100 ML IV ONE; -LACTATED RINGERS 1,000 ML ONE; -LOVENOX SQ ONE; -MARCAINE 0.25%-EPI 1:200,000 ONE; -MEFOXIN ONE; -SENSORCAINE-MPF 0.25% VIAL ONE; -SODIUM CHLORIDE IRR BOTTLE IR ONE; -WATER ONE
== END | disposition home or self-care (01) ==
LOC: RAD 10:31
PROVIDERS: ATTEND Nurse Practitioner Family
DX: M19.011 Primary osteoarthritis, right shoulder (principal); M25.511 Pain in right shoulder
CPT/HCPCS: 73030-RT

== ENCOUNTER → 2024-09-13 | Outpatient (CLI) | payer BC | END | disposition home or self-care (01) | LOC: RAD 11:13 | PROVIDERS: ATTEND Nurse Practitioner Family | DX: M19.012 Primary osteoarthritis, left shoulder (principal); M25.512 Pain in left shoulder | CPT/HCPCS: 73030-LT ==

== ENCOUNTER → 2024-10-01 | Outpatient (CLI) | payer BC | END | disposition home or self-care (01) | LOC: RAD 12:12 | PROVIDERS: ATTEND Nurse Practitioner Family | DX: M19.011 Primary osteoarthritis, right shoulder (principal); M19.012 Primary osteoarthritis, left shoulder; M25.711 Osteophyte, right shoulder; M25.712 Osteophyte, left shoulder; M77.8 Other enthesopathies, not elsewhere classified; M25.811 Other specified joint disorders, right shoulder; M25.812 Other specified joint disorders, left shoulder | CPT/HCPCS: 73218 ==